=== PATIENT | female | born 2000 | race Caucasian/White ===

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

== ENCOUNTER 2019-01-01 13:46 | Emergency (ER) | payer MEDICAID ==
[~2019-01-01] VITALS: Ht 149.9 cm; Wt 52.2 kg
[2019-01-01 13:50] VITALS: BP_SYST 123
[2019-01-01] MEDS ORDERED: KETOROLAC TROMETHAMINE 30 MG VIAL IM ONE (14:00)
[2019-01-01] MEDS ORDERED: DIPHENHYDRAMINE HCL 25 MG CAPSULE PO ONE (14:00)
[2019-01-01 14:27] VITALS: BP_SYST 115
== END 2019-01-01 14:28 | disposition home or self-care (01) ==
LOC: SED 13:46
DX: S50.862A Insect bite (nonvenomous) of left forearm, initial encounter (principal); J45.909 Unspecified asthma, uncomplicated; W57.XXXA Bitten or stung by nonvenomous insect and other nonvenomous arthropods, initial encounter; Y93.89 Activity, other specified; Y92.89 Other specified places as the place of occurrence of the external cause; Y99.8 Other external cause status
CPT/HCPCS: 81025; 96372; 99283; J1885; Q0163

== ENCOUNTER 2021-09-26 12:54 | Emergency (ER) | payer MEDICAID ==
[~2021-09-26] VITALS: Ht 152.4 cm; Wt 52.2 kg
[2021-09-26 13:06] VITALS: BP_SYST 104
[2021-09-26 13:56] VITALS: BP_SYST 104
[2021-09-26] MEDS ORDERED: IBUP-1969 PO (13:57)
[2021-09-26] MEDS ORDERED: AMOX-520 PO (13:57)
== END 2021-09-26 13:57 | disposition home or self-care (01) ==
LOC: SED 12:54
DX: H66.91 Otitis media, unspecified, right ear (principal); J45.909 Unspecified asthma, uncomplicated
CPT/HCPCS: 99283

== ENCOUNTER 2021-10-13 13:34 | Emergency (ER) | payer MEDICAID ==
[~2021-10-13] VITALS: Ht 149.9 cm; Wt 54.4 kg
[~2021-10-13 13:34] MED LIST changes: +AMOX-520 PO; +IBUP-1969 PO
[2021-10-13 13:40] VITALS: BP_SYST 143
[2021-10-13] MEDS ORDERED: ACETAMINOPHEN 325 MG TABLET PO ONE (14:45)
[2021-10-13 15:46] VITALS: BP_SYST 109
== END 2021-10-13 15:48 | disposition home or self-care (01) ==
LOC: SED 13:34
DX: S09.8XXA Other specified injuries of head, initial encounter (principal); W22.8XXA Striking against or struck by other objects, initial encounter; Y93.89 Activity, other specified; Y92.89 Other specified places as the place of occurrence of the external cause; Y99.8 Other external cause status
CPT/HCPCS: 70450-TC; 76376; 99284

== ENCOUNTER 2022-03-01 17:04 | Emergency (ER) | payer MEDICAID ==
[~2022-03-01] VITALS: Ht 149.9 cm; Wt 52.2 kg
[2022-03-01 17:49] VITALS: BP_SYST 124
--- NOTE | 2022-03-01 21:10 | NUR ---
with patient in waiting room.
[2022-03-01] MEDS ORDERED: LR 1,000 ML IV ONE (21:15)
[2022-03-01] MEDS ORDERED: KETOROLAC TROMETHAMINE 15 MG VIAL IM ONE (21:15)
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
[2022-03-01 22:57] LABS: CALCIUM 9.1 mg/dL (8.4-11.0); CREATININE 0.82 mg/dL (0.55-1.30); POTASSIUM 4.2 mmol/L (3.5-5.1)
[2022-03-02] MEDS ORDERED: PHE25 PO (00:15)
[2022-03-02] MEDS ORDERED: NAPR-686 PO (00:15)
[2022-03-02] MEDS ORDERED: PROCHLORPERAZINE EDISYLATE 10 MG/2 ML VIAL IM ONE (00:30)
--- NOTE | 2022-03-02 00:43 | NUR ---
Patient given written and verbal discharge instructions and verbalizes understanding. ER Dr. Martinez discussed with patient the results and treatment provided. Patient in stable condition. ID arm band removed. Rx of naproxen and phenergan given. Patient educated on pain management and to follow up with PMD. Pain Scale 0. Opportunity for questions provided and answered. Medication side effect fact sheet provided.
[2022-03-02 00:47] VITALS: BP_SYST 124
== END 2022-03-02 00:47 | disposition home or self-care (01) ==
LOC: SED 17:04
DX: R51.9 Headache, unspecified (principal); R11.0 Nausea; Z79.899 Other long term (current) drug therapy
CPT/HCPCS: 99284; 80048; 36415; 96372 ×2; J1885; J0780

== ENCOUNTER 2022-04-09 20:57 | Emergency (ER) | payer MEDICAID ==
[~2022-04-09] VITALS: Ht 149.9 cm; Wt 52.2 kg
[~2022-04-09 20:57] MED LIST changes: +NAPR-686 PO; +PHE25 PO
[2022-04-09 21:01] VITALS: BP_SYST 130
[2022-04-09] MEDS ORDERED: IPRATROPIUM/ALBUTEROL SULFATE 3 ML AMPUL.NEB (DUONEB) INH ONE (21:15)
[2022-04-09] MEDS ORDERED: predniSONE 20 MG TABLET PO ONE (21:45)
[2022-04-09] MEDS ORDERED: PRED20TA PO ×2 (21:49→22:04)
[2022-04-09] MEDS ORDERED: ALBMDI INH ×2 (21:50→22:04)
== END 2022-04-09 21:57 | disposition home or self-care (01) ==
LOC: SED 20:57
DX: J45.901 Unspecified asthma with (acute) exacerbation (principal); J02.9 Acute pharyngitis, unspecified; R05.9 Cough, unspecified; Z79.899 Other long term (current) drug therapy
CPT/HCPCS: 99283; 94640; J7512

== ENCOUNTER 2022-06-07 00:49 | Emergency (ER) | payer MEDICAID ==
[~2022-06-07] VITALS: Ht 149.9 cm; Wt 52.2 kg
[~2022-06-07 00:49] MED LIST changes: +ALBMDI INH; +PRED20TA PO
[2022-06-07 01:11] VITALS: BP_SYST 120
--- NOTE | 2022-06-07 01:15 | NUR ---
Patient to ER bed 7 to gown for evaluation. Side rails up. Report given to TOBIAS THAKUR(REG).
--- NOTE | 2022-06-07 01:15 | NUR ---
PT COMPLAINING OF RIGHT MID QUADRANT ABD PAIN, PROVOKED WHEN EATING. PT STATES PAIN HAS BEEN GOING ON AROUND 3 WEEKS. ACCOMPANIED WITH NAUSEA AND CHILLS. NAD NOTED AT THIS TIME. PT AMBULATED WITH STEADY GAIT TO RESTROOM TO GIVE URINE SPECIMEN. DENIES SICK CONTACT. DENIES DIARRHEA/FEVER. RESP E/U. ABD SOFT, NONDISTENED. GCS15. SKIN WDL. HX ASTHMA, DEPRESSION
--- NOTE | 2022-06-07 01:18 | NUR ---
ER at bedside examining patient.
[2022-06-07] MEDS ORDERED: NACL 0.9% 1,000 ML IV ONE (01:30)
[2022-06-07] MEDS ORDERED: KETOROLAC TROMETHAMINE 30 MG VIAL IVP ONE (01:30)
--- NOTE | 2022-06-07 01:47 | NUR ---
20G angiocath placed to L AC. Use of asceptic technique. Opsite placed over site. Blood return noted. Blood for lab drawn from site. Flushed with 10 cc of normal saline. No evidence of infiltration noted. Patient tolerated well.
--- NOTE | 2022-06-07 01:48 | NUR ---
Urine HCG done, results NEGATIVE
--- NOTE | 2022-06-07 01:58 | NUR ---
PT TO CT
[2022-06-07 02:08] LABS: BILIRUBIN,URINE NEGATIVE (NEGATIVE); BLOOD, URINE 2+ (NEGATIVE); CLARITY/URINE CLEAR (CLEAR); COLOR,URINE YELLOW (YELLOW); GLUCOSE,URINE NEGATIVE (NEGATIVE); KETONES,URINE NEGATIVE (NEGATIVE); LEUKOCYTE ESTERASE ,URINE NEGATIVE (NEGATIVE); NITRITE, URINE NEGATIVE (NEGATIVE); PROTEIN URINE NEGATIVE (NEGATIVE); UROBILINOGEN,URINE 0.2 (0.2-1.0)
--- NOTE | 2022-06-07 02:08 | NUR ---
BACK FROM CT
[2022-06-07 02:37] LABS: BASOPHILS % (AUTO) 0.2 % (0.0-2.0); EOSINOPHILS # (AUTO) 0.1 K/uL (0.0-0.4); EOSINOPHILS % (AUTO) 1.2 % (0.0-4.0); HEMATOCRIT 36.8 % (36-48); HEMOGLOBIN 12.4 g/dL (12.0-16.0); LYMPHOCYTES # (AUTO) 2.5 K/uL (1.0-5.5); LYMPHOCYTES % (AUTO) 32.6 % (20.5-51.5); MEAN CORPUSCULAR HEMOGLOBIN 29 pg (27-31); MEAN CORPUSCULAR HGB CONC 34 % (32-36); MEAN CORPUSCULAR VOLUME 85 fL (79.0-98.0); MONOCYTES # (AUTO) 0.6 K/uL (0.0-1.0); MONOCYTES % (AUTO) 7.6 % (1.7-9.3); NEUTROPHILS # (AUTO) 4.5 K/uL (1.8-7.7); NEUTROPHILS % (AUTO) 58.4 % (40.0-70.0); PLATELET COUNT (AUTO) 293 K/uL (130-430); RED BLOOD CELL COUNT(AUTO) 4.32 MIL/uL (4.2-6.2); RED CELL DISTRIBUTION WIDTH 13.8 % (9.0-15.0); WHITE BLOOD COUNT (AUTO) 7.6 K/uL (4.8-10.8)
[2022-06-07 02:39] LABS: BACTERIA,URINE FEW /HPF (None Seen); MUCUS,URINE None Seen /LPF (None Seen); YEAST,URINE Few /HPF (None Seen)
[2022-06-07 02:49] LABS: CALCIUM 8.6 mg/dL (8.4-11.0); CREATININE 0.52 mg/dL (0.55-1.30)
[2022-06-07 02:54] LABS: ALBUMIN 3.9 g/dL (3.4-4.8); TOTAL BILIRUBIN 0.2 mg/dL (0.0-1.0)
--- NOTE | 2022-06-07 03:51 | NUR ---
Patient given written and verbal discharge instructions and verbalizes understanding. DR. JACOBO discussed with patient the results and treatment provided. Patient in stable condition. ID arm band removed. IV catheter removed intact and dressing applied, no active bleeding. Rx of given. Patient educated on pain management and to follow up with PMD. Pain Scale 2. Opportunity for questions provided and answered. Medication side effect fact sheet provided.
[2022-06-07 04:15] VITALS: BP_SYST 107
== END 2022-06-07 03:51 | disposition home or self-care (01) ==
LOC: SED 00:49
DX: R10.31 Right lower quadrant pain (principal); R11.0 Nausea; J45.909 Unspecified asthma, uncomplicated; Z79.899 Other long term (current) drug therapy
CPT/HCPCS: 99284; 74176; 96374; 96361; 80053; 81000; 85025; 36415; 76376; J1885; J7030

== ENCOUNTER 2022-08-23 11:35 | Emergency (ER) | payer MEDICAID ==
[~2022-08-23] VITALS: Ht 152.4 cm; Wt 52.2 kg
[2022-08-23 11:52] VITALS: BP_SYST 130
--- NOTE | 2022-08-23 12:00 | NUR ---
HCG complete negative. urine sent to lab.
--- NOTE | 2022-08-23 12:45 | NUR ---
Pt brought in by self to ED from home. Chief complaint vaginal bleeding between periods. Last MP dated 08/12. Pt states suprapubic cramping. Bright red blood without flow. Pt is aaox3 skin intact, denies trauma.
[2022-08-23 13:12] LABS: BASOPHILS % (AUTO) 0.3 % (0.0-2.0); EOSINOPHILS # (AUTO) 0.1 K/uL (0.0-0.4); EOSINOPHILS % (AUTO) 1.2 % (0.0-4.0); HEMATOCRIT 40.4 % (36-48); HEMOGLOBIN 13.3 g/dL (12.0-16.0); LYMPHOCYTES # (AUTO) 1.3 K/uL (1.0-5.5); MEAN CORPUSCULAR HEMOGLOBIN 28 pg (27-31); MEAN CORPUSCULAR HGB CONC 33 % (32-36); MEAN CORPUSCULAR VOLUME 86 fL (79.0-98.0); MONOCYTES # (AUTO) 0.5 K/uL (0.0-1.0); MONOCYTES % (AUTO) 7.3 % (1.7-9.3); NEUTROPHILS # (AUTO) 4.9 K/uL (1.8-7.7); NEUTROPHILS % (AUTO) 72.2 % (40.0-70.0); PLATELET COUNT (AUTO) 240 K/uL (130-430); RED BLOOD CELL COUNT(AUTO) 4.73 MIL/uL (4.2-6.2); RED CELL DISTRIBUTION WIDTH 13.5 % (9.0-15.0); WHITE BLOOD COUNT (AUTO) 6.7 K/uL (4.8-10.8)
--- NOTE | 2022-08-23 13:30 | NUR ---
Phlebotomy to bedside for collection of specimen.
[2022-08-23 13:50] VITALS: BP_SYST 130
--- NOTE | 2022-08-23 13:50 | NUR ---
Patient given written and verbal discharge instructions and verbalizes understanding. ER MD discussed with patient the results and treatment provided. Patient in stable condition. ID arm band removed.
== END 2022-08-23 13:50 | disposition home or self-care (01) ==
LOC: SED 11:35
DX: N93.9 Abnormal uterine and vaginal bleeding, unspecified (principal); J45.909 Unspecified asthma, uncomplicated; Z79.899 Other long term (current) drug therapy
CPT/HCPCS: 36415; 81025; 84702; 85025; 86900; 86901; 99283

== ENCOUNTER 2022-10-14 20:43 | Emergency (ER) | payer MEDICAID | END 2022-10-14 21:00 | disposition left against medical advice (07) | LOC: SED 20:43 | DX: R21 Rash and other nonspecific skin eruption (principal); R51.9 Headache, unspecified; Z53.21 Procedure and treatment not carried out due to patient leaving prior to being seen by health care provider ==

== ENCOUNTER 2023-03-27 22:27 | Emergency (ER) | payer MEDICAID ==
[~2023-03-27] VITALS: Ht 149.9 cm; Wt 52.2 kg
[2023-03-27 22:35] VITALS: BP_SYST 125; PULSE 75; RESP 18; TEMP 97.8; O2SAT 98
== END 2023-03-27 22:50 | disposition home or self-care (01) ==
LOC: SED 22:27
DX: J02.9 Acute pharyngitis, unspecified (principal); R05.9 Cough, unspecified; R50.9 Fever, unspecified; J45.909 Unspecified asthma, uncomplicated; Z79.899 Other long term (current) drug therapy
CPT/HCPCS: 99282

== ENCOUNTER 2023-06-15 07:10 | Emergency (ER) | payer MEDICAID ==
[~2023-06-15] VITALS: Ht 149.9 cm; Wt 45.8 kg
[2023-06-15 07:18] VITALS: BP_SYST 116; PULSE 99; RESP 19; TEMP 98.1; O2SAT 99
[2023-06-15 07:47] LABS: BASOPHILS % (AUTO) 0.2 % (0.0-2.0); EOSINOPHILS # (AUTO) 0.3 K/uL (0.0-0.4); EOSINOPHILS % (AUTO) 2.8 % (0.0-4.0); HEMATOCRIT 38.6 % (36-48); HEMOGLOBIN 12.7 g/dL (12.0-16.0); LYMPHOCYTES # (AUTO) 1.1 K/uL (1.0-5.5); LYMPHOCYTES % (AUTO) 10.8 % (20.5-51.5); MEAN CORPUSCULAR HEMOGLOBIN 28 pg (27-31); MEAN CORPUSCULAR HGB CONC 33 % (32-36); MEAN CORPUSCULAR VOLUME 84 fL (79.0-98.0); MONOCYTES # (AUTO) 0.7 K/uL (0.0-1.0); MONOCYTES % (AUTO) 7.3 % (1.7-9.3); NEUTROPHILS # (AUTO) 7.9 K/uL (1.8-7.7); NEUTROPHILS % (AUTO) 78.9 % (40.0-70.0); PLATELET COUNT (AUTO) 231 K/uL (130-430); RED CELL DISTRIBUTION WIDTH 13.6 % (9.0-15.0)
[2023-06-15 07:55] LABS: CALCIUM 8.3 mg/dL (8.4-11.0); CREATININE 0.49 mg/dL (0.55-1.30); POTASSIUM 3.5 mmol/L (3.5-5.1)
[2023-06-15 08:13] LABS: INFLUENZA TYPE A Negative (NEGATIVE); INFLUENZA TYPE B NEGATIVE (NEGATIVE)
[2023-06-15] MEDS ORDERED: AUG875 PO (08:46)
[2023-06-15 08:56] VITALS: BP_SYST 117; PULSE 90; RESP 18; TEMP 98.9; O2SAT 99
== END 2023-06-15 08:55 | disposition home or self-care (01) ==
LOC: SED 07:10
DX: J40 Bronchitis, not specified as acute or chronic (principal); R05.9 Cough, unspecified; R07.9 Chest pain, unspecified; Z79.899 Other long term (current) drug therapy; Z20.822 Contact with and (suspected) exposure to COVID-19
CPT/HCPCS: 36415; 71046-TC; 80048; 85025; 85379; 99284

== ENCOUNTER 2023-11-02 08:07 | Emergency (ER) | payer MEDICAID ==
[~2023-11-02] VITALS: Ht 149.9 cm; Wt 52.2 kg
[2023-11-02 08:07] VITALS: BP_SYST 118; PULSE 64; RESP 18; TEMP 97.5; O2SAT 99
[~2023-11-02 08:07] MED LIST changes: +AUG875 PO
[2023-11-02] MEDS: IBUPROFEN 600 MG TABLET PO ONE (08:28)
[2023-11-02] MEDS: ACETAMINOPHEN 500 MG TABLET PO ONE (08:28)
[2023-11-02] MEDS ORDERED: IBUP-1969 PO (09:06)
[2023-11-02 09:14] VITALS: BP_SYST 118; PULSE 64; RESP 18; TEMP 97.5; O2SAT 99
== END 2023-11-02 09:13 | disposition home or self-care (01) ==
LOC: SED 08:07
DX: S00.83XA Contusion of other part of head, initial encounter (principal); J45.909 Unspecified asthma, uncomplicated; Z79.899 Other long term (current) drug therapy; W50.1XXA Accidental kick by another person, initial encounter; Y93.89 Activity, other specified; Y92.89 Other specified places as the place of occurrence of the external cause; Y99.8 Other external cause status
CPT/HCPCS: 70110; 99283

== ENCOUNTER 2023-12-04 12:42 | Emergency (ER) | payer MEDICAID ==
[~2023-12-04] VITALS: Ht 152.4 cm; Wt 49.9 kg
[2023-12-04 12:50] VITALS: BP_SYST 112; PULSE 66; RESP 16; TEMP 98.3; O2SAT 99
[2023-12-04 13:17] VITALS: BP_SYST 112; PULSE 66; RESP 16; TEMP 98.3; O2SAT 99
== END 2023-12-04 13:31 | disposition left against medical advice (07) ==
LOC: SED 12:42
DX: H92.02 Otalgia, left ear (principal); Z53.21 Procedure and treatment not carried out due to patient leaving prior to being seen by health care provider

== ENCOUNTER 2024-03-05 09:34 | Emergency (ER) | payer MEDICAID ==
[~2024-03-05] VITALS: Ht 147.3 cm; Wt 68.0 kg
[2024-03-05 09:40] VITALS: BP_SYST 162; PULSE 66; RESP 18; TEMP 98.3; O2SAT 98
[2024-03-05] MEDS: EPINEPHRINE HCL/PF 1 MG/ML AMP IM ONE (10:07)
[2024-03-05 10:50] LABS: BASOPHILS % (AUTO) 0.4 % (0.0-2.0); EOSINOPHILS # (AUTO) 0.2 K/uL (0.0-0.4); HEMATOCRIT 40.8 % (36-48); HEMOGLOBIN 13.5 g/dL (12.0-16.0); LYMPHOCYTES # (AUTO) 1.9 K/uL (1.0-5.5); LYMPHOCYTES % (AUTO) 29.4 % (20.5-51.5); MEAN CORPUSCULAR HEMOGLOBIN 28 pg (27-31); MEAN CORPUSCULAR HGB CONC 33 % (32-36); MEAN CORPUSCULAR VOLUME 84 fL (79.0-98.0); MONOCYTES # (AUTO) 0.4 K/uL (0.0-1.0); NEUTROPHILS # (AUTO) 4.1 K/uL (1.8-7.7); NEUTROPHILS % (AUTO) 61.2 % (40.0-70.0); PLATELET COUNT (AUTO) 265 K/uL (130-430); RED BLOOD CELL COUNT(AUTO) 4.85 MIL/uL (4.2-6.2); RED CELL DISTRIBUTION WIDTH 13.8 % (9.0-15.0); WHITE BLOOD COUNT (AUTO) 6.6 K/uL (4.8-10.8)
[2024-03-05 11:18] LABS: CALCIUM 8.9 mg/dL (8.4-11.0); CREATININE 0.61 mg/dL (0.55-1.30); POTASSIUM 3.9 mmol/L (3.5-5.1)
[2024-03-05 11:20] LABS: INR 0.9 (0.8-1.2); PROTHROMBIN TIME 9.8 SECS (9.5-12.5)
[2024-03-05] MEDS ORDERED: HYDC2.5% TP (11:47)
[2024-03-05 12:10] VITALS: BP_SYST 111; PULSE 70; RESP 16; TEMP 98.3; O2SAT 100
== END 2024-03-05 12:10 | disposition home or self-care (01) ==
LOC: SED 09:34
DX: L25.9 Unspecified contact dermatitis, unspecified cause (principal); J45.909 Unspecified asthma, uncomplicated; Z79.899 Other long term (current) drug therapy; Z79.2 Long term (current) use of antibiotics
CPT/HCPCS: 99283; 80048; 85025; 85610; 85730; 36415; 81025; 96372; 83605; 82397; J0171

== ENCOUNTER 2024-04-22 22:56 | Emergency (ER) | payer MEDICAID, OTHER ==
[~2024-04-22] VITALS: Ht 149.9 cm; Wt 49.9 kg
[~2024-04-22 22:56] MED LIST changes: +HYDC2.5% TP; +TRAM50TA2 PO
[2024-04-22 23:00] VITALS: BP_SYST 138; PULSE 66; RESP 20; O2SAT 100
[2024-04-22] MEDS: predniSONE 20 MG TABLET PO ONE (23:49)
[2024-04-22] MEDS: ALBUTEROL SULFATE 0.083% 2.5 MG/3 ML VIAL.NEB INH ONE (23:50)
[2024-04-23] MEDS ORDERED: ALBMDI INH (02:30)
[2024-04-23] MEDS ORDERED: PRED20TA PO (02:30)
[2024-04-23 02:36] VITALS: BP_SYST 114; PULSE 78; RESP 17; TEMP 97.8; O2SAT 96
== END 2024-04-23 02:36 | disposition home or self-care (01) ==
LOC: SED 22:56
DX: J45.901 Unspecified asthma with (acute) exacerbation (principal); Z79.52 Long term (current) use of systemic steroids
CPT/HCPCS: 71045; 93005; 94640; 99283; J7512